=== PATIENT | female | born 1960 ===

== ENCOUNTER 2016-10-28 10:20 | Outpatient (CLI) | payer BC ==
[2016-10-28 11:13] LABS: #Basophils 0.1 thou/uL (0.0-0.2); #Eosinphils 0.2 thou/uL (0.0-0.7); #Lymphocytes 2.7 thou/uL (1.20-3.40); #Monocytes 0.7 thou/uL (0.11-0.59); #Neutrophils 8.2 thou/uL (1.40-6.50); %Basophils 0.6 % (0.0-1.0); %Eosinophils 1.9 % (0.0-10.0); %Monocytes 5.8 % (0.0-10.0); Hematocrit 46.6 % (36.0-47.0); Mean Platelet Volume 8.6 fL (7.4-10.4); Red Blood Cell (RBC) Count 5.32 mill/uL (4.20-5.40); White Blood Cell (WBC) Count 11.8 thou/uL (4.8-10.8)
[2016-10-28 11:44] LABS: Hemoglobin A1c 8.5 % (4.0-6.0)
[2016-10-28 11:46] LABS: ALT (SGPT) 23 U/L (0-55); AST (SGOT) 19 U/L (5-34); Alkaline Phosphatase 80 U/L (40-150); Anion Gap 14 mmol/L (10-20); BUN (Urea Nitrogen) 18 mg/dL (9.8-20.1); Bilirubin, Total 0.3 mg/dL (0.2-1.2); Calc. Creatinine Clearance 0 mL/min (70-130); Calcium 9.5 mg/dL (7.8-10.44); Carbon Dioxide 26 mmol/L (22-29); Chloride 105 mmol/L (98-107); Estimated GFR-MDRD 66; Globulin 3.2 g/dL (2.4-3.5); LDL Cholesterol, Calculated 59 mg/dL; Protein, Total 7.2 g/dL (6.0-8.3)
[2016-10-28 19:07] LABS: Microalbumin Urine 4.1 mg/dL (0.5-50.0)
== END 2016-10-28 10:21 | disposition home or self-care (01) ==
LOC: HPCALD 10:20
PROVIDERS: ATTEND Family Medicine
DX: E78.2 Mixed hyperlipidemia (principal); E11.9 Type 2 diabetes mellitus without complications; I10 Essential (primary) hypertension
CPT/HCPCS: 36415; 80053; 80061; 82043; 82570; 83036; 84443; 85025

== ENCOUNTER 2017-01-30 10:57 | Outpatient (CLI) | payer BC ==
[~2017-01-30 10:57] MED LIST: Iopamidol 370 76% 100 ML VIAL ONE
--- NOTE | 2017-01-30 18:07 | CT ---
CT ABDOMEN AND PELVIS WITH CONTRAST: Date: 01-30-17 Technique: Spiral CT of the abdomen and pelvis was done for evaluation of a palpable mass in the per iumbilical region in the midline. Axial slices were acquired and then coronal reconstructions were d one. FINDINGS: The right lung base is clear. There is large hiatal hernia involving all of the stomach and a portio n of the duodenum herniated into the left chest. This causes a little resulting atelectasis and/or s carring in the left lower lobe. The gastric outlet has a somewhat thick wall which could be due to e ither inflammatory disease, less likely neoplasm, or merely due to the cramped space that it is in, since it resides in the thorax itself. The liver is somewhat low density which could signify fatty infiltrate. No focal lesions were seen. The spleen, pancreas, adrenal glands, gallbladder and aorta showed no acute changes. The kidneys alexandre w no mass or hydronephrosis. No renal calculi were appreciated. There is a small Midline periumbilical hernia. The defect lies just above the level of the umbilicus and measures about 1.8 cm in width. Mesenteric fat herniates through it and is responsible for a 4 cm rounded area of fat seen in the subcutaneous soft tissues, no doubt the palpable abnormality. The bowel is nondistended. There is no sign of obstruction. No bowel goes through the hernia defect. An abundance of fecal material is seen in the colon. No bowel wall thickening was seen. Very equivo arthur thickening of a few loops of proximal small bowel is probably just due to it being collapsed. CT of the pelvis shows no pelvic masses, fluid collections, or inflammatory changes. IMPRESSION: 1. Small midline umbilical hernia, just above the level of the umbilicus. 2. Large hiatal hernia with all of the stomach and a portion of the duodenum herniated into the left lower chest. Note: There is thickening of the gastric outlet wall, but this may be secondary to the restricted space that it has to lie in. 3. Mild fatty infiltration of the liver. 4. Mild constipation. POS: HOME
== END 2017-01-30 10:58 | disposition home or self-care (01) ==
LOC: BURCT 10:57
PROVIDERS: ATTEND Family Medicine
DX: R19.05 Periumbilic swelling, mass or lump (principal); K42.9 Umbilical hernia without obstruction or gangrene; K76.0 Fatty (change of) liver, not elsewhere classified; K59.00 Constipation, unspecified; K44.9 Diaphragmatic hernia without obstruction or gangrene
CPT/HCPCS: 36415; 74177; 82565

== ENCOUNTER 2020-08-05 23:03 | Emergency (ER) | payer BC, OTHER ==
[2020-08-05] MEDS ORDERED: Ibuprofen 800 MG TAB ONE (23:20)
[2020-08-05] MEDS ORDERED: Ondansetron ODT 4 MG TAB ONE (23:20)
[2020-08-06 18:12] LABS: SARS-CoV-2 MS2 Positive; SARS-CoV-2 N Gene Positive; SARS-CoV-2 S Gene Positive; SARS-CoV-2 by NAA DETECTED (NotDetected); SARS-CoV-2 orf1ab Positive
== END 2020-08-05 23:30 | disposition home or self-care (01) ==
LOC: BURERS 23:03
DX: U07.1 COVID-19 (principal); E11.9 Type 2 diabetes mellitus without complications; I10 Essential (primary) hypertension; Z79.899 Other long term (current) drug therapy; Z79.82 Long term (current) use of aspirin
CPT/HCPCS: 87635; 99283; Q0162; U0003

== ENCOUNTER 2020-08-09 02:06 | Emergency (ER) | payer BC, OTHER ==
[2020-08-09 02:40] LABS: #Basophils 0.1 thou/uL (0.0-0.2); #Eosinphils 0.1 thou/uL (0.0-0.7); #Lymphocytes 1.6 thou/uL (1.20-3.40); #Monocytes 0.7 thou/uL (0.11-0.59); #Neutrophils 6.2 thou/uL (1.40-6.50); %Basophils 0.8 % (0.0-1.0); %Eosinophils 0.7 % (0.0-10.0); %Lymphocytes 18.7 % (21.0-51.0); %Monocytes 7.9 % (0.0-10.0); %Neutrophils 71.9 % (42.0-75.0); Hemoglobin 16.9 g/dL (12.0-16.0); Mean Corpuscular HGB CONC 31.7 g/dL (32.0-36.0); Mean Corpuscular Hemoglobin 27.7 pg (27.0-31.0); Mean Corpuscular Volume 87.5 fL (78.0-98.0); Mean Platelet Volume 9.3 fL (7.4-10.4); Platelet Count 129 thou/uL (130-400); RBC Distribution Width 12.9 % (11.5-14.5); Red Blood Cell (RBC) Count 6.11 mill/uL (4.20-5.40); White Blood Cell (WBC) Count 8.7 thou/uL (4.8-10.8)
[2020-08-09 03:01] LABS: ALT (SGPT) 48 U/L (8-55); AST (SGOT) 48 U/L (5-34); Albumin 4.3 g/dL (3.4-4.8); Alkaline Phosphatase 71 U/L (40-110); Anion Gap 20 mmol/L (10-20); BUN (Urea Nitrogen) 14 mg/dL (9.8-20.1); Calc. Creatinine Clearance 0 mL/min (70-130); Carbon Dioxide 24 mmol/L (23-31); Chloride 97 mmol/L (98-107); Estimated GFR-MDRD 58; Globulin 3.6 g/dL (2.4-3.5); Glucose 109 mg/dL (80-115); Potassium 4.2 mmol/L (3.5-5.1); Protein, Total 7.9 g/dL (6.0-8.3); Sodium 137 mmol/L (136-145)
[2020-08-09] MEDS ORDERED: Lidocaine 1% w/Epinephrine 1:100K 20 ML VIAL ONE (03:21)
[2020-08-09 03:24] LABS: Bilirubin, Total 0.4 mg/dL (0.2-1.2)
[2020-08-09 03:29] LABS: CKMB 11.9 ng/mL (0-6.6)
--- NOTE | 2020-08-09 09:46 | CT ---
PRELIMINARY REPORT/[facility]/AFTER HOURS PROCEDURE CT CERVICAL SPINE WITHOUT INTRAVENOUS CONTRAST: CLINICAL HISTORY: S/P fall. TECHNIQUE: Axial computed tomography images of the cervical spine without intravenous contrast. Sagittal and cor onal reformations performed. COMPARISON: CT brain without contrast from 08/09/2020 at 2:40 a.m. CDT. FINDINGS BONES: No acute fracture or focal osseous lesion. Bony alignment is anatomic. DISCS/DEGENERATIVE CHANGES: Mild degenerative changes from C4-C7. SOFT TISSUES: Right posterior scalp laceration. No apical pneumothorax. IMPRESSION: No acute cervical spine abnormality. ELECTRONICALLY SIGNED BY: Owen Ramos MD Aug 09, 2020 3:10:33 AM ACCESS ANALYST This report is intended for review by the ordering physician only, in accordance of law. If you recei ve this report in error, please call [facility] at [phone]. FINAL REPORT CT CERVICAL SPINE: 08/09/20 HISTORY/TECHNIQUE: A spiral CT of the cervical spine was done after a fall. Axial slices were acquired followed by coron al and sagittal reconstructions. FINDINGS: No fracture is seen at any level. There is reversal of the normal cervical lordosis, which may be due to muscle spasm. Disk space narrowing is present at C5-C6 with osteophytes anteriorly. Findings by rosa nicolas follow: C1-C2: No acute findings. C2-C3: No acute findings. C3-C4: Moderate to severe left foraminal narrowing due to osteophytes. C4-C5: No acute findings. C5-C6: No acute findings. C6-C7: No acute findings. C7-T1: No acute findings. T1-T2: No acute findings. The lung apices show no pneumothorax. The right lobe of the thyroid gland is larger than the left and perhaps a little inhomogeneous but I could not diagnose any focal mass within it. IMPRESSION: No fracture. Straightening of the cervical spine. Report in agreement with preliminary reading by [facility]. CODE QA POS: HOME
--- NOTE | 2020-08-09 09:50 | CT ---
PRELIMINARY REPORT/[facility]/AFTER HOURS PROCEDURE This report was discussed with MOHAMUD MELISSA MD by Owen Ramos on Aug 09, 2020 03:07:00 ASSURANCE MANAGER INSURANCE. Addendum electronically signed by Gabby Davis on August 09, 2020 3:07:22 [address]ANCE MANAGER INSURANCE [address] HEAD WITHOUT INTRAVENOUS CONTRAST: CLINICAL HISTORY: S/P fall. Pt hit head. Lac on back of head. TECHNIQUE: Axial computed tomography images of the head/brain without intravenous contrast. COMPARISON: CT cervical spine without contrast from 08/09/2020 at 2:42 a.m. CDT. FINDINGS: BRAIN: There is right Sylvian subarachnoid hemorrhage. No mass lesion. No CT evidence for acute rekha torial infarct. No midline shift or extra-axial collection. VENTRICLES: No hydrocephalus. ORBITS: The orbits are unremarkable. SINUSES AND MASTOIDS: The paranasal sinuses and mastoid air cells are clear. SOFT TISSUES: Right posterior scalp laceration. No radiopaque foreign body is seen. BONES: No acute skull fracture. IMPRESSION: Right Sylvian subarachnoid hemorrhage. ELECTRONICALLY SIGNED BY: Owen Ramos MD Aug 09, 2020 3:01:48 AM ASSURANCE MANAGER INSURANCE This report is intended for review by the ordering physician only, in accordance of law. If you recei ve this report in error, please call [facility] at [phone]. FINAL REPORT CT BRAIN WITHOUT CONTRAST: 08/09/20 FINDINGS: The ventricles are normal in size with no shift. There is some subarachnoid bleeding present in the r ight sylvian fissure and adjacent sulci. No subdural or epidural hematoma is seen. There is no sign o f intracranial mass or edema. The skull itself appears intact with no sign of fracture. There is no a ir-fluid level in the sphenoid sinus and the mastoid air cells are clear. IMPRESSION: Subarachnoid bleeding in the right sylvian fissure. Report in agreement with preliminary reading by [facility]. CODE QA POS: HOME
--- NOTE | 2020-08-09 12:05 | RAD ---
AP PORTABLE CHEST: 08/09/20 0409 HOURS COMPARISON: 11/14/2011 FINDINGS: Mild cardiomegaly is present. There is no congestive change, pneumothorax or large pleural effusion. Slight elevation of the left hemidiaphragm is chronic in this patient. There is a small amount of str eaking in the left base that is linear in nature that may be atelectasis. The right lung is clear. Th ere is no widening of the mediastinum. IMPRESSION: 1. Cardiomegaly. 2. Probable linear atelectasis in the left base. POS: HOME
== END 2020-08-09 04:25 | disposition short-term general hospital (02) ==
LOC: BURERS 02:06
DX: R55 Syncope and collapse (principal); S06.6X9A Traumatic subarachnoid hemorrhage with loss of consciousness of unspecified duration, initial encounter; S01.01XA Laceration without foreign body of scalp, initial encounter; U07.1 COVID-19; R77.8 Other specified abnormalities of plasma proteins; R91.8 Other nonspecific abnormal finding of lung field; E11.9 Type 2 diabetes mellitus without complications; I10 Essential (primary) hypertension; Z79.899 Other long term (current) drug therapy; Z79.82 Long term (current) use of aspirin; Z79.4 Long term (current) use of insulin; W22.8XXA Striking against or struck by other objects, initial encounter; Y92.009 Unspecified place in unspecified non-institutional (private) residence as the place of occurrence of the external cause
CPT/HCPCS: 12002; 36416; 70450; 71045; 72125; 80053; 82553; 83605; 84484; 85025; 93005